=== PATIENT | male | born 1980 | race Caucasian/White ===

== ENCOUNTER 2017-08-12 17:21 | Emergency (ER) | payer OTHER ==
--- NOTE | 2017-08-12 19:12 | ED Physician Documentation ---
PD HPI UPPER EXT INJURY - Stated complaint Stated Complaint: R HAND LAC - Chief complaint Chief Complaint: Laceration - History obtained from History obtained from: Patient - History of Present Illness Location: Right, Hand Type of injury: Laceration Where injury occurred: Work Timing - onset: Today Timing - details: Abrupt onset, Still present (he says it was bleeding briskly and he got it to stop with quick clot type wound powder and direct pressure. Here for evaluation and he thinks it needs sutures.) Review of Systems Neurologic: denies: Focal weakness, Numbness, Near syncope PD PAST MEDICAL HISTORY - Past Medical History Past Medical History: No - Past Surgical History Past Surgical History: No - Present Medications Home Medications: Ambulatory Orders Medication Instructions Recorded Confirmed No Known Home Medications [No 08/12/17 08/12/17 Known Home Medications] - Allergies Allergies/Adverse Reactions: Allergies Allergy/AdvReac Type Severity Reaction Status Date / Time No Known Drug Allergies Allergy Verified 08/12/17 17:26 - Social History Does the pt smoke?: No Smoking Status: Never smoker PD ED PE NORMAL - Vitals Vital signs reviewed: Yes - General General: Alert and oriented X 3, No acute distress, Well developed/nourished - Derm Derm: Normal color, Warm and dry - Extremities Extremities: Other (dorsum right hand with 1.6 cm laceration without bleeding at this time. There is congealed wound care material on the wound, that easily removes. No unexpected FBs. No deep structures involved.) - Neuro Neuro: No motor deficit, No sensory deficit Results - Vitals Vitals: Oxygen O2 Source Room air Procedures - Laceration (location) dorsum right hand Length in cm: 1.6 Wound type: Linear, Into subcut fat, Other (has quick clot wound substance on it , that removes easily. No FB per se.) Neurovascular status: Sensory intact, Motor intact, Vascular intact Tendon involvement: Tendon intact. No: Tendon Injury Anesthesia: Lidocaine 1% with epi Deep layer closure: size #-0 - enter number (4), # sutures - enter number (7) Skin layer closure: Nylon Other: Patient tolerated well, No complications, Neurovascular intact, Dressing applied, Tetanus UTD Complexity: Simple PD MEDICAL DECISION MAKING - ED course Complexity details: considered differential, d/w patient Departure - Departure Disposition: 01 Home, Self Care Clinical Impression: Laceration of right hand Qualifiers: Encounter type: initial encounter Foreign body presence: without foreign body Qualified Code(s): S61.411A - Laceration without foreign body of right hand, initial encounter Condition: Stable Record reviewed to determine appropriate education?: Yes Instructions: ED Laceration Hand Comments: Suture removal 8-10 days. Tylenol or ibuprofen if needed for pains. It is okay to wash and shower. Clean off the wound twice a day with soap and water, or peroxide and water. Apply some antibiotic ointment to it to keep it moist. Also to watch for signs of infection such as purulence, redness or increasing pain. Return to your primary care or the ER at the specified time for suture removal. Discharge Date/Time: 08/12/17 19:53
[2017-08-12 19:55] VITALS: BP 148/95
== END 2017-08-12 19:53 | disposition home or self-care (01) ==
LOC: ED 17:21
DX: S61.411A Laceration without foreign body of right hand, initial encounter (principal); W31.9XXA Contact with unspecified machinery, initial encounter; Y99.0 Civilian activity done for income or pay
CPT/HCPCS: 1040M; 12001; 99282; 99283